=== PATIENT | male | born 1995 | race Caucasian/White ===

== ENCOUNTER 2017-03-27 09:52 | Emergency (ER) | END 2017-03-27 10:45 | disposition home or self-care (01) | DX: R05 Cough (principal) ==

== ENCOUNTER 2019-01-28 12:45 | Emergency (ER) | payer OTHER ==
[~2019-01-28] VITALS: Ht 162.6 cm; Wt 74.0 kg
[~2019-01-28 12:45] MED LIST: BENZ-6 PO; CETI10CA PO; NAPR-985 PO
[2019-01-28 12:51] VITALS: Ht 162.6 cm; Wt 74.0 kg
[2019-01-28] MEDS ORDERED: SOD CHLORIDE 0.9% 1,000 ML IV STA (13:02)
[2019-01-28] MEDS ORDERED: LIDOCAINE/MYLANTA 40 ML BTL PO STA (13:02)
[2019-01-28] MEDS ORDERED: FAMOTIDINE 20 MG INJ IV STA (13:02)
--- NOTE | 2019-01-28 13:14 | ERD ---
ER Documentation Chief Complaint Chief Complaint AP WITH BLOATING & WALLACE'S X 2 WEEKS HPI This is a 23-year-old male with a nonsignificant past medical history presents ED with complaints of upper abdominal pain is been present for the past 2 weeks. Patient states that the pain is constant he rates it at a 4 out of 10 and states that it is worsened when he drinks alcohol. Patient states that when he drinks alcohol the pain increases to a 6 out of 10 pain. Denies fevers, chills, nausea, vomiting, diarrhea, constipation, dysuria, hematuria, melena, hematochezia, hematemesis ROS All systems reviewed and are negative except as per history of present illness. Medications Home Meds Active Scripts Naproxen* (Naprosyn*) 500 Mg Tablet, 500 MG PO BID PRN for PAIN AND/OR INFLAMM ATION, #30 TAB Prov:RENAE EPPS PA-C 03/27/17 Cetirizine Hcl* (Zyrtec*) 10 Mg Capsule, 10 MG PO DAILY, #10 TAB.CHEW Prov:RENAE EPPS PA-C 03/27/17 Benzonatate* (Tessalon Perle*) 100 Mg Capsule, 100 MG PO Q8H PRN for COUGH, #30 CAP Prov:RENAE EPPS PA-C 03/27/17 Allergies Allergies: Coded Allergies: No Known Allergy (Unverified , 09/09/12) PMhx/Soc History of Surgery: Yes (left lower leg cyst removal) Anesthesia Reaction: No Hx Neurological Disorder: No Hx Respiratory Disorders: No Hx Cardiac Disorders: No Hx Psychiatric Problems: No Hx Miscellaneous Medical Probl: No Hx Alcohol Use: Yes (occasional) Hx Substance Use: No Hx Tobacco Use: No Physical Exam Vitals Vital Signs Date Temp Pulse Resp B/P (MAP) Pulse Ox O2 O2 Flow FiO2 Time Delivery Rate 01/28/19 98.7 99 18 130/70 97 12:51 (90) Physical Exam Physical Exam Vitals signs: Reviewed by me. General: Well developed, well nourished, in no acute distress. Patient is awake and alert. Head: Normocephalic, atraumatic. Eyes: Normal conjunctiva, Pupils PERRLA, EOM intact grossly ENT: Pharynx is clear, Moist mucous membranes, external ears, nose and mouth normal Neck: Supple, no masses, lymphadenopathy or JVD Respiratory: Clear to auscultation bilaterally with no wheezing, rhonchi, rales, no distress Cardiovascular: RRR, no murmurs, rubs, or gallops Abdominal: Soft, nondistended, no peritoneal signs, no rigidity, no surgical abdomen, bowel sounds present all 4 quadrants, mild tenderness palpation in the right upper quadrant epigastric region, nontender in all other areas, Mary sign negative, McBurney's point nontender, no rebound tenderness : Deferred MSK: No edema Back: No midline tenderness Neurologic: Alert and oriented, moving all extremities, normal speech, no focal weakness, no cerebellar signs. Normal mentation Skin: warm and dry, No rash Psych: Normal mood Result Diagram: 01/28/19 1352 01/28/19 1352 Results 24 hrs Laboratory Tests Test 01/28/19 13:52 White Blood Count 14.9 10^3/ul Red Blood Count 5.19 10^6/ul Hemoglobin 15.1 g/dl Hematocrit 43.9 % Mean Corpuscular Volume 84.6 fl Mean Corpuscular Hemoglobin 29.1 pg Mean Corpuscular Hemoglobin Concent 34.4 g/dl Red Cell Distribution Width 12.8 % Platelet Count 365 10^3/UL Mean Platelet Volume 9.4 fl Immature Granulocytes % 0.700 % Neutrophils % 80.5 % Lymphocytes % 11.8 % Monocytes % 6.2 % Eosinophils % 0.3 % Basophils % 0.5 % Nucleated Red Blood Cells % 0.0 /100WBC Immature Granulocytes # 0.110 10^3/ul Neutrophils # 12.0 10^3/ul Lymphocytes # 1.8 10^3/ul Monocytes # 0.9 10^3/ul Eosinophils # 0.1 10^3/ul Basophils # 0.1 10^3/ul Nucleated Red Blood Cells # 0.0 10^3/ul Urine Color YELLOW Urine Clarity CLEAR Urine pH 9.0 Urine Specific [place] 1.009 Urine Ketones NEGATIVE mg/dL Urine Nitrite NEGATIVE mg/dL Urine Bilirubin NEGATIVE mg/dL Urine Urobilinogen NEGATIVE mg/dL Urine Leukocyte Esterase NEGATIVE [place]/ul Urine Hemoglobin NEGATIVE mg/dL Urine Glucose NEGATIVE mg/dL Urine Total Protein NEGATIVE mg/dl Sodium Level 141 mmol/L Potassium Level 4.6 mmol/L Chloride Level 102 mmol/L Carbon Dioxide Level 29 mmol/L Anion Gap 10 Blood Urea Nitrogen 12 mg/dl Creatinine 0.98 mg/dl Est Glomerular Filtrat Rate mL/min > 60 mL/min Glucose Level 91 mg/dl Calcium Level 9.4 mg/dl Total Bilirubin 0.7 mg/dl Direct Bilirubin 0.00 mg/dl Indirect Bilirubin 0.7 mg/dl Aspartate Amino Transf (AST/SGOT) 23 IU/L Alanine Aminotransferase (ALT/SGPT) 19 IU/L Alkaline Phosphatase 107 IU/L Total Protein 7.9 g/dl Albumin 4.5 g/dl Globulin 3.40 g/dl Albumin/Globulin Ratio 1.32 Lipase 64 U/L Current Medications Medications Dose Sig/Valdo Start Time Status Last (Trade) Ordered Route PRN Stop Time Admin Dose Reason Admin Sodium 1,000 ml @ Q1H STAT 01/28/19 DC 01/28/19 Chloride 1,000 mls/hr IV 13:02 01/28/19 13:57 14:01 Famotidine 20 mg ONCE STAT 01/28/19 DC 01/28/19 (Pepcid Iv) IV 13:02 01/28/19 13:56 13:05 40 ml ONCE STAT 01/28/19 DC 01/28/19 Miscellaneous PO 13:02 01/28/19 13:56 Medication 13:05 (Gi Cocktail (2)) Procedures/MDM EKG, MONITORS, & DIAGNOSTIC IMAGING: [place] [address] Radiology Main Line: [phone] DIAGNOSTIC IMAGING REPORT Patient: MYA STRINGER : 1995 Age: 23 Sex: M [id number] DOS: 01/28/19 1302 Ordering MD: SOL RUIZ PA-C Location: E Room/Bed: PROCEDURE: US Abdomen. CLINICAL INDICATION: Abdominal Pain TECHNIQUE: Multiple real-time images were acquired of the patient's abdomen and retroperitoneum utilizing a high resolution transducer. COMPARISON: None FINDINGS: The liver is of normal size, contour and echogenicity with no mass or in trahepatic ductal dilatation. Portal and hepatic vein are patent on color flow Doppler imaging. The common bile duct measures 1.1 millimeter in transverse diameter.No gallstones are identified. Gallbladder wall is not thickened and no abnormal pericholecystic fluid collection is seen. No sonographic Mary's sign was elicited during this exam. There is no ascites. The pancreas is normal with no mass or ductal dilatation. The right kidney measures 11 cm in length. No hydronephrosis, calculus or masses present. . There is no evidence of abdominal aortic aneurysm or caval thrombosis. IMPRESSION: No evidence of cholelithiasis, cholecystitis or biliary obstruction. .Jamal Ken MD, MD Date Time Electronically viewed and signed by .Jamal Ken MD, on 01/28/2019 13:50 .A/ CC: SOL RUIZ PA-C [id number] [place] [address] Radiology Main Line: [phone] DIAGNOSTIC IMAGING REPORT Patient: MYA STRINGER : 1995 Age: 23 Sex: M MR #: [id number] DOS: 01/28/19 1426 Ordering MD: SOL RUIZ PA-C Location: FTE Room/Bed: PROCEDURE: CT abdomen and pelvis without contrast. CLINICAL INDICATION: Abdominal Pain TECHNIQUE: CT scan of the abdomen and pelvis without oral contrast was performed and is reconstructed at 2.5 mm contiguous axial intervals from the dome of the diaphragm to the inferior pubic rami.. The patient was scanned wit hout intravenous contrast. Sagittal and coronal reformatted images were obtained from the axial source images. The calculated radiation dose measures 516 mGy centimeters. The CTDI measures 9 mGy. Individualized dose optimization technique was used for the performance of this exam. This included 1. Automated exposure control. 2. Adjustment of the mA and / or kV according to the patient's size. 3. Use of iterative reconstructed technique. DICOM images are available. COMPARISON: None. FINDINGS: The lung bases are clear of any infiltrate or nodule. No effusion is seen. The liver is of normal size, contour and attenuation with no mass or ductal dilatation. No gallstones are visualized. No splenic, adrenal or pancreatic abnormalities present. Kidneys are of normal size and contour. No hydronephrosis, calculus or mass Is seen. Ureters are of normal course and caliber with no stone. No bladder mass or stone is present. Prostate and seminal vesicles appear normal. There is no aneurysm. No adenopathy is present. No bowel mass or obstruction is present. The appendix is normal. No phlegmon, ascites or pneumoperitoneum is visualized. The osseous structures are intact. IMPRESSION: No evidence of urolithiasis, obstructive uropathy, diverticulitis or append icitis. .Jamal Ken MD, MD Date Time Electronically viewed and signed by .Jamal Ken MD, MD on 01/28/2019 15:06 .A/ CC: SOL RUIZ PA-C [id number] LAB INTERPRETATION: CBC remarkable for a leukocytosis of 14.9 with an elevated neutrophil percentage of 80.5%, no decreased hemoglobin or hematocrit Chemistry shows no evidence of significant electrolyte abnormalities or renal insufficiency Liver function test shows no evidence of acute biliary or hepatic dysfunction Lipase shows no evidence of acute pancreatitis urine unremarkable ER COURSE: The patient was given IV normal saline, Pepcid, GI cocktail The medication was well tolerated and the patient reports improvement in symptoms. The patient was stable throughout ED course. I kept the patient and/or family informed of laboratory and diagnostic imaging results throughout the emergency room course. The patient was promptly evaluated and a treatment plan was devised based on H&P and other data. This plan was discussed with the patient who agreed and had no further questions or concerns prior to discharge. MEDICAL DECISION MAKING: This is a 23-year-old male with a nonsignificant past medical history presents ED with complaints of upper abdominal pain that has been present for the past 2 weeks. Male patient presenting with abdominal pain. Considered causes of abdominal pain that are not gender-specific (e.g., gastritis, pancreatitis, GERD, gastric ulcer, appendicitis, volvulus, small bowel obstruction, mesenteric adenitis, acute cholecystitis/choledocholithiasis, AAA and other biliary pathology, etc.) as well as male-specific causes (testicular torsion, epididymitis, orchitis, etc.). Patient well-appearing with normal vital signs. Abdomen benign on multiple repeat exams. Blood work is remarkable for leukocytosis of 14.9 but otherwise laboratory testing and imaging here reviewed and normal. Given history this is likely gastritis. patient given strict return precautions for worsening pain, inability to eat/drink, fevers (temperature over 100.4F), or other concerns. Patient instructed to follow up with his primary doctor and is agreeable; all questions were answered. Repeat abdominal exam in 12 hours. Pt agrees w tx plan and understands strict return precautions. DISPOSITION PLAN: We discussed follow up with the patient's primary care doctor within 24 to 48 hours. Patient counseled regarding my diagnostic impression and care plan. Prior to discharge all questions answered. Pt agrees with treatment plan and understands strict return precautions. Precautionary instructions provided including instructions to return to the ER if not improving or for any worsening or changing symptoms or concerns. SPECIALIST FOLLOW UP RECOMMENDED: None Patient has been advised to follow up with primary care in 1-2 days. Disclaimer: Inadvertent spelling and grammatical errors are likely due to EHR/dictation software use and do not reflect on the overall quality of patient care. Also, please note that the electronic time recorded on this note does not necessarily reflect the actual time of the patient encounter. Departure Diagnosis: Primary Impression: Abdominal pain Abdominal location: upper abdomen, unspecified Qualified Codes: R10.10 - Upper abdominal pain, unspecified Condition: Stable Patient Instructions: Abdominal Pain, Gastritis (Adult), Gastritis Vs. Ulcer, Treating Gastritis, Understanding Gastritis Referrals: RAMONITA LARA MD, GNANA MD JOGANI, PIYUSH K MD NAGARAJA, [facility] Additional Instructions: Patient advised to return to the ED immediately for new or worsening symptoms. Patient advised to follow up with primary care provider in the next 24-48 hours. Patient verbalized understanding and agrees with treatment plan and course of action. If patient has no primary care they may follow up with one of the community clinics listed on the following page or one of the options listed below [facility] [address] [place] [id number] or [facility] [address] [place] [id number] or [facility] [address] [place] [address] SOL RUIZ PA-C Jan 28, 2019 13:14
[2019-01-28] MEDS ORDERED: FAMO-96 PO (15:13)
[2019-01-28 15:34] VITALS: BP 143/73; PULSE 74; RESP 18
== END 2019-01-28 15:35 | disposition home or self-care (01) ==
LOC: FTE 12:45
DX: R10.11 Right upper quadrant pain (principal); R10.13 Epigastric pain
CPT/HCPCS: 36415; 74176; 76705; 80053; 81003; 83690; 85025; 96361; 96374; J7030; Z7502; Z7610